=== PATIENT | female | born 1990 | race Caucasian/White ===

== ENCOUNTER → 2020-01-20 | Outpatient (CLI) | payer OTHER | LOC: LAB 09:53 | PROVIDERS: ATTEND Obstetrics & Gynecology | DX: Z34.93 Encounter for supervision of normal pregnancy, unspecified, third trimester (principal); Z3A.00 Weeks of gestation of pregnancy not specified | CPT/HCPCS: 36415; 82950 ==

== ENCOUNTER → 2020-03-22 | Outpatient (CLI) | payer OTHER ==
[~2020-03-22] MED LIST: DOCU-109 PO; IBUP-1060 PO
== END ==
LOC: SPEC 10:14
PROVIDERS: ATTEND Obstetrics & Gynecology
DX: Z34.93 Encounter for supervision of normal pregnancy, unspecified, third trimester (principal); Z3A.00 Weeks of gestation of pregnancy not specified
CPT/HCPCS: 36415; 87653

== ENCOUNTER 2020-04-07 01:17 | Inpatient (IN) | payer OTHER ==
[~2020-04-07] VITALS: Ht 172.7 cm; Wt 94.3 kg
[2020-04-07] MEDS ORDERED: ACETAMINOPHEN 500 MG TABLET PO PRN (01:30)
[2020-04-07 01:41] LABS: BILIRUBIN,URINE NEGATIVE (NEG); CLARITY,URINE CLOUDY; COLOR,URINE YELLOW; NITRITE,URINE NEGATIVE (NEG); PH,URINE 6.5 (<5.0-8.0); PROTEIN,URINE NEGATIVE (NEG-TRACE); UROBILINOGEN,URINE 0.2 mg/dL (0.2 mg/dL)
[2020-04-07 01:46] LABS: SQUAMOUS EPITHELIAL CELL,UR FEW /LPF
[2020-04-07 01:47] LABS: BACTERIA,URINE 0 /HPF (0-FEW); WBC,URINE 0 /HPF (0-4)
[2020-04-07] MEDS: IV RINGERS,LACTATED 1000ML 1,000 ML IV SCH ×6 (05:19→21:19)
[2020-04-07 05:24] VITALS: BP 118/65
[2020-04-07] MEDS ORDERED: IBUPROFEN 400 MG TABLET. PO PRN (05:30)
[2020-04-07] MEDS ORDERED: OXYTOCIN 30 UNIT/500 ML PREMIX 500 ML IV PRN ×3 (05:30→08:15)
[2020-04-07] MEDS ORDERED: LIDOCAINE 1% PF 30 ML VIAL. INJ PRN (05:30)
[2020-04-07] MEDS ORDERED: BUTORPHANOL 2 MG/ML VIAL. IVP PRN (05:30)
[2020-04-07] MEDS ORDERED: fentaNYL PF VIAL 100 MCG/2 ML VIAL IVP PRN (05:30)
[2020-04-07] MEDS ORDERED: ONDANSETRON PF 4 MG/2 ML VIAL. IVP PRN (05:30)
[2020-04-07] MEDS ORDERED: TERBUTALINE 1 MG/ML VIAL. SQ PRN (05:30)
[2020-04-07] MEDS ORDERED: 0.9 % SODIUM CHLORIDE 10 ML DISP.SYRIN. IV PRN ×2 (05:30→08:15)
[2020-04-07 05:40] LABS: BASO % 0 % (0-3); EOS % 0 % (0-3); HEMATOCRIT 37.8 % (36.0-47.0); HEMOGLOBIN 12.3 g/dL (12.0-15.5); LYMPH # 1.2 x10^3/uL (1.0-4.8); LYMPH % 7 % (24-48); MEAN CORPUSCULAR HEMOGLOBIN 28 pg (25-35); MEAN CORPUSCULAR HGB CONC 33 g/dL (31-37); MEAN CORPUSCULAR VOLUME 85 fL (79-100); MONO # 0.7 x10^3/uL (0.0-1.1); MONO % 4 % (0-9); NEUT # 15.5 x10^3/uL (1.8-7.7); NEUT % 89 % (31-73); PLATELET COUNT 188 x10^3/uL (140-400); RED BLOOD COUNT 4.46 x10^6/uL (3.50-5.40); RED CELL DISTRIBUTION WIDTH 13.7 % (11.5-14.5); WHITE BLOOD COUNT 17.5 x10^3/uL (4.0-11.0)
[2020-04-07 06:21] LABS: % BANDS 10 % (0-9); % BASOS 1 % (0-3); % LYMPHS 11 % (24-48); % MONOS 5 % (0-10); % SEGS 73 % (35-66); PLT ESTIMATE ADEQUATE (ADEQUATE)
[2020-04-07] MEDS ORDERED: OXYTOCIN PREMIX 30 UNIT/500 ML NS BAG. IV ONE (07:00)
--- NOTE | 2020-04-07 08:12 | PDOC1 ---
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 On presentation she was found to be 1 cm dilated. After a couple hours she was found to have made cervical change so she was subsequently admitted. The pt began her care with Dr. Santos at [facility] in [facility]. She transferred around 23wk when she began working with [employer] ([employer]). PMH: Denies PSH: T&A Meds: PNV All: NKDA OBHx: G1 SH: no tob, no EtOH FH: noncontributory Medications: Meds: Current Medications Medications (Trade) Dose Ordered Sig/James Route PRN Reason Start Time Stop Time Status Last Admin Dose Admin Ringer's Solution 1,000 ml @ 125 mls/hr Q8H IV 04/07/20 01:18 04/07/20 05:28 Allergies: Coded Allergies: No Known Drug Allergies (Unverified , 04/07/20) Physical Exam: Vital Signs: Vital Signs Date Time Temp Pulse Resp B/P (MAP) Pulse Ox O2 Delivery O2 Flow Rate FiO2 04/07/20 05:24 98.0 88 20 118/65 (82) Room Air 98.0 PE: GENERAL: No apparent distress. Alert and oriented. HEENT: Head normocephalic, atraumatic. NECK: Supple LUNGS: Clear to auscultation. HEART: RRR, S1, S2 present, pulses intact ABDOMEN: Soft, positive bowel sounds. EXTREMITIES: No cyanosis or edema. NEUROLOGIC: Normal speech, normal tone PSYCHIATRIC: Normal affect, normal mood. SKIN: No ulceration. FHT: 120s +acels/no decels/mLTV [place]: 1-3 min SVE: 8/C/0 Labs: Laboratory Tests Test 04/07/20 01:30 04/07/20 05:22 Urine Collection Type Unknown Urine Color Yellow Urine Clarity Cloudy Urine pH 6.5 (<5.0-8.0) Urine Specific [place] 1.010 (1.000-1.030) Urine Protein Negative mg/dL (NEG-TRACE) Urine Glucose (UA) Negative mg/dL (NEG) Urine Ketones (Stick) Negative mg/dL (NEG) Urine Blood Trace (NEG) Urine Nitrite Negative (NEG) Urine Bilirubin Negative (NEG) Urine Urobilinogen Dipstick 0.2 mg/dL (0.2 mg/dL) Urine Leukocyte Esterase Negative (NEG) Urine RBC 1-2 /HPF (0-2) Urine WBC 0 /HPF (0-4) Urine Squamous Epithelial Cells Few /LPF Urine Bacteria 0 /HPF (0-FEW) White Blood Count 17.5 x10^3/uL (4.0-11.0) H Red Blood Count 4.46 x10^6/uL (3.50-5.40) Hemoglobin 12.3 g/dL (12.0-15.5) Hematocrit 37.8 % (36.0-47.0) Mean Corpuscular Volume 85 fL (79-100) Mean Corpuscular Hemoglobin 28 pg (25-35) Mean Corpuscular Hemoglobin Concent 33 g/dL (31-37) Red Cell Distribution Width 13.7 % (11.5-14.5) Platelet Count 188 x10^3/uL (140-400) Neutrophils (%) (Auto) 89 % (31-73) H Lymphocytes (%) (Auto) 7 % (24-48) L Monocytes (%) (Auto) 4 % (0-9) Eosinophils (%) (Auto) 0 % (0-3) Basophils (%) (Auto) 0 % (0-3) Neutrophils # (Auto) 15.5 x10^3/uL (1.8-7.7) H Lymphocytes # (Auto) 1.2 x10^3/uL (1.0-4.8) Monocytes # (Auto) 0.7 x10^3/uL (0.0-1.1) Eosinophils # (Auto) 0.0 x10^3/uL (0.0-0.7) Basophils # (Auto) 0.0 x10^3/uL (0.0-0.2) Segmented Neutrophils % 73 % (35-66) H Band Neutrophils % 10 % (0-9) H Lymphocytes % 11 % (24-48) L Monocytes % 5 % (0-10) Basophils % 1 % (0-3) Platelet Estimate Adequate (ADEQUATE) Laboratory Tests 04/07/20 05:22 Laboratory Tests 04/07/20 05:22 Assessment & Plan: A/P 30y @ 39.4 by L=21 1.) Active labor expectant management 2.) Flu vaccine given Jul 2019 3.) TDAP given 02/02/20 4.) Fetus cat I FHT 5.) Boy: Froilan 6.) plan 7.) GBS neg TERRY ORTEZ MD Apr 07, 2020 08:12
[2020-04-07] MEDS ORDERED: ACETAMINOPHEN 325 MG TABLET. PO PRN (08:15)
[2020-04-07] MEDS ORDERED: ZOLPIDEM 5 MG TABLET. PO PRN (08:15)
[2020-04-07] MEDS ORDERED: HYDROCORTISONE 1% TOPICAL OINTMENT 30GM TUBE. TP PRN (08:15)
[2020-04-07] MEDS ORDERED: diphenhydrAMINE HCL 25 MG CAPSULE PO PRN (08:15)
[2020-04-07] MEDS ORDERED: SIMETHICONE 80 MG TAB.CHEW PO PRN (08:15)
[2020-04-07] MEDS ORDERED: DOCUSATE SODIUM 100 MG CAPSULE. PO PRN (08:15)
[2020-04-07] MEDS ORDERED: oxyCODONE/APAP 5/325 1 TAB TABLET PO PRN (08:15)
[2020-04-07] MEDS ORDERED: PHENYLEPH/MINERAL OIL/PETROLAT RECTAL OINTMENT TUBE. RC PRN (08:15)
[2020-04-07] MEDS ORDERED: MMR per PROTOCOL. MC PRN (08:15)
[2020-04-07] MEDS ORDERED: TDaP (Adacel) per PROTOCOL. MC PRN (08:15)
[2020-04-07] MEDS ORDERED: BENZOCAINE 20% TOPICAL AEROSOL SPRAY 57GM CAN. TP PRN (08:15)
[2020-04-07] MEDS ORDERED: MAG HYDROX/ALUMINUM HYD/SIMETH 30 ML ORAL.SUSP PO PRN (08:15)
[2020-04-07] MEDS ORDERED: MAGNESIUM HYDROXIDE 2,400 MG/30 ML ORAL.SUSP. PO PRN (08:15)
--- NOTE | 2020-04-07 08:19 | PDOC ---
VAGINAL DELIVERY DATE DATE: 04/07/20 TIME: 08:18 TIME Patient delivered a viable male over intact perineum at 0737. Wt 7lb 13.8oz. Apgars 8/9. Placenta delivered spontaneously, intact with 3VC. 2nd degree laceration right of midline noted. Repaired in usual fashion with 30 vicryl. Good hemostasis noted. No post delivery Pitocin given. EBL 350cc. WEIGHT Weight [ ] TERRY ORTEZ MD Apr 07, 2020 08:19
[2020-04-07] MEDS: IBUPROFEN 400 MG TABLET. PO PRN ×2 (08:31→21:14)
[2020-04-07] MEDS: PRENATAL MULTIVITAMIN TABLET. PO SCH (09:00)
[2020-04-07 10:20] VITALS: BP 104/72
[2020-04-07 11:20] VITALS: BP 109/75
[2020-04-07 17:38] VITALS: BP 118/81
[2020-04-07 21:20] VITALS: BP 104/69
[2020-04-08 03:00] VITALS: BP 106/67
[2020-04-08 04:48] LABS: HEMATOCRIT 28.5 % (36.0-47.0); HEMOGLOBIN 9.4 g/dL (12.0-15.5)
[2020-04-08] MEDS ORDERED: FERROUS SULFATE 325 MG TABLET. PO SCH (08:00)
[2020-04-08] MEDS: PRENATAL MULTIVITAMIN TABLET. PO SCH (09:11)
[2020-04-08] MEDS: IBUPROFEN 400 MG TABLET. PO PRN (09:11)
--- NOTE | 2020-04-08 09:36 | PDOC ---
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 Dana PO. Voiding. Minimal lochia Objective: Vital Signs: Vital Signs Date Time Temp Pulse Resp B/P (MAP) Pulse Ox O2 Delivery O2 Flow Rate FiO2 04/07/20 10:20 98.3 111 18 104/72 (83) 96 Room Air 98.3 Vital Signs Date Time Temp Pulse Resp B/P (MAP) Pulse Ox O2 Delivery O2 Flow Rate FiO2 04/08/20 03:00 97.7 85 14 106/67 (80) 98 97.7 04/07/20 21:20 Room Air Labs: Laboratory Tests Test 04/08/20 04:40 Hemoglobin 9.4 g/dL (12.0-15.5) L Hematocrit 28.5 % (36.0-47.0) L Mean Corpuscular Hemoglobin Concent 33 g/dL (31-37) Laboratory Tests 04/08/20 04:40 Laboratory Tests 04/08/20 04:40 Physical Exam: GENERAL: No apparent distress. Alert and oriented. HEENT: Head normocephalic, atraumatic. NECK: Supple LUNGS: Clear to auscultation. HEART: RRR, S1, S2 present, pulses intact ABDOMEN: Soft, positive bowel sounds. EXTREMITIES: No cyanosis or edema. NEUROLOGIC: Normal speech, normal tone PSYCHIATRIC: Normal affect, normal mood. SKIN: No ulceration. FFNT below umb No C/C/E Assessment & Plan: A/P 30y PPD #1 s/p 1.) PP doing well 2.) Flu vaccine given Jul 2019 3.) TDAP given 02/02/20 4.) Hgb 12.3 -> 9.4 5.) Contraception barrier methods 6.) Cont PP care TERRY ORTEZ MD Apr 08, 2020 09:36
[2020-04-08] MEDS ORDERED: IBUP-1060 PO (09:37)
[2020-04-08] MEDS ORDERED: DOCU-109 PO (09:37)
[2020-04-08 10:15] VITALS: BP 111/73
--- NOTE | 2020-04-08 13:40 | NUR ---
Discharge and follow up instructions reviewed with and given to pt. Pt verbalized understanding and denied any questions or complaints at time of discharge. Pt ambulated out of the hospital with her , and staff.
--- NOTE | 2020-04-09 10:06 | DS ---
DATE OF DISCHARGE: 04/08/2020 ADMISSION DIAGNOSES: 1. Intrauterine at 39 weeks and 4 days by last menstrual period equal to a 21-week ultrasound. 2. Active labor. 3. GBS negative. DISCHARGE DIAGNOSES: 1. Intrauterine at 39 weeks and 4 days by last menstrual period equal to a 21-week ultrasound. 2. Active labor. 3. GBS negative. PROCEDURE: Spontaneous vaginal delivery. BRIEF HOSPITAL COURSE: The patient is a 30-year-old 1, para 0, who presented to Labor and Delivery at 39 weeks and 4 days by a LMP equal to a 21-week ultrasound with contractions. The patient was found to be 1 cm dilated on presentation. After a couple of hours, the patient had made cervical change and was subsequently admitted. Approximately around 7 o'clock, the patient was found to be complete and pushing was initiated. The patient delivered by vaginal delivery, see delivery note for full detail. By day #1, the patient was meeting all discharge criteria and subsequently was discharged home. Of note, the patient's blood count at the time of admission was 12.3 and after delivery was 9.4. DISCHARGE INSTRUCTIONS: The patient was told not to lift anything greater than 20 pounds, have pelvic rest for 6 weeks. The patient was to call if she had fevers, chills, nausea, vomiting, abdominal pain or any additional questions or concerns. FOLLOWUP APPOINTMENT: The patient is to follow up in the office on 05/19/2019 at 9:30 a.m. for a appointment. DISCHARGE MEDICATIONS: The patient was given a prescription for Motrin 800 mg 30 pills and Colace 100 mg 30 pills. TERRY ORTEZ MD DR: CAITLYN/avani JOB#: [id number] / [id number]
== END 2020-04-08 13:40 | disposition home or self-care (01) | DRG 807 ==
LOC: 3 SO LND 01:17 → OBSVTOIN 01:17 → 3 NORTH 10:20
PROVIDERS: ADMIT Obstetrics & Gynecology; ATTEND Obstetrics & Gynecology
PROC: 10E0XZZ Delivery of Products of Conception, External Approach (ICD-10-PCS; principal; 2020-04-07)
PROC: 0KQM0ZZ Repair Perineum Muscle, Open Approach (ICD-10-PCS; 2020-04-07)
DX: O70.1 Second degree perineal laceration during delivery (principal); Z37.0 Single live birth; Z3A.39 39 weeks gestation of pregnancy; Z20.828 Contact with and (suspected) exposure to other viral communicable diseases
CPT/HCPCS: 36415; 81001; 85007; 85014; 85018; 85025; 86592; 86850; 86900; 86901; J2590; J7120; G0378; U0003-CS

== ENCOUNTER → 2021-05-24 | Outpatient (CLI) | payer OTHER ==
[2021-05-24 10:57] LABS: BASO # 0.1 x10^3/uL (0.0-0.2); BASO % 1 % (0-3); EOS # 0.1 x10^3/uL (0.0-0.7); EOS % 2 % (0-3); HEMATOCRIT 38.3 % (36.0-47.0); HEMOGLOBIN 12.8 g/dL (12.0-15.5); LYMPH % 29 % (24-48); MEAN CORPUSCULAR HEMOGLOBIN 28 pg (25-35); MEAN CORPUSCULAR HGB CONC 33 g/dL (31-37); MEAN CORPUSCULAR VOLUME 85 fL (79-100); MONO # 0.4 x10^3/uL (0.0-1.1); MONO % 7 % (0-9); NEUT # 4.2 x10^3/uL (1.8-7.7); NEUT % 62 % (31-73); PLATELET COUNT 212 x10^3/uL (140-400); RED BLOOD COUNT 4.52 x10^6/uL (3.50-5.40); WHITE BLOOD COUNT 6.8 x10^3/uL (4.0-11.0)
[2021-05-24 11:11] LABS: ALBUMIN 3.8 g/dL (3.4-5.0); ALBUMIN/GLOBULIN RATIO 1.1 (1.0-1.7); CREATININE 0.7 mg/dL (0.6-1.0); GFR 97.6; POTASSIUM 4.3 mmol/L (3.5-5.1); TOTAL PROTEIN 7.2 g/dL (6.4-8.2)
== END ==
LOC: LAB 10:25
PROVIDERS: ATTEND Family Medicine
DX: R10.11 Right upper quadrant pain (principal)
CPT/HCPCS: 36415; 80053; 82150; 83690; 85025

== ENCOUNTER → 2021-05-25 | Outpatient (CLI) | payer OTHER ==
--- NOTE | 2021-05-25 15:24 | KCIC ---
EXAM: ULTRASOUND ABDOMEN LIMITED CLINICAL HISTORY: Reason: RIGHT UPPER QUADRANT PAIN COMPARISON: None available. TECHNIQUE: Limited ultrasound examination of the right upper quadrant of the abdomen was performed. FINDINGS: The liver measures 15.9 cm. The gallbladder wall thickness measures 1.1 mm. No evidence of gallstones . The common bile duct measures 2.2 mm in transverse dimension. The visualized aorta, IVC within norm al limits of dimension. The right kidney measures 10.5 x 4.5 x 4.0 cm. IMPRESSION: Unremarkable exam. Electronically signed by: Kartik Vieira MD (05/25/2021 3:21 PM) [id number]
== END ==
LOC: KCIC US 09:32
PROVIDERS: ATTEND Family Medicine
DX: R10.11 Right upper quadrant pain (principal)
CPT/HCPCS: 76705

== ENCOUNTER → 2021-06-14 | Outpatient (CLI) | payer OTHER ==
--- NOTE | 2021-06-14 10:56 | RAD ---
HEPATOBILIARY SCAN WITH EJECTION FRACTION History: Reason: RIGHT UPPER QUAD PAIN / Spl. Instructions: / History: Comparison: Limited Abdominal ultrasound May 25, 2021. Procedure: Serial static images are obtained of the liver and biliary system in the frontal projectio n following IV administration of 5 mCi of Technetium 99m Choletec. After filling of the gallbladder , patient drank 8oz of Ensure for fatty meal protocol and returned to supine position. Dynamic imagin g continued x60 minutes. The gallbladder ejection fraction was calculated. Findings: There is prompt hepatic clearance of tracer from the blood pool. There is homogeneous distribution th roughout the liver. There is normal filling of the gallbladder and normal emptying into the biliary s ystem. There is preferential filling of the gallbladder prior to the ejection fraction portion of the exam, a normal variant. The gallbladder ejection fraction measures 98% (normal gallbladder EF is 35% or greater). IMPRESSION: 1. The cystic duct and common bile duct are patent. Negative for acute cholecystitis. 2. The gallbladder ejection fraction is normal. Electronically signed by: Francisco Buenrostro MD (06/14/2021 10:54 AM) [id number]
== END ==
LOC: NM 08:41
PROVIDERS: ATTEND Family Medicine
DX: K76.89 Other specified diseases of liver (principal)
CPT/HCPCS: 78227; A9537

== ENCOUNTER → 2021-08-22 | Outpatient (CLI) | payer OTHER | LOC: LAB 13:17 | PROVIDERS: ATTEND Internal Medicine Gastroenterology | DX: Z01.812 Encounter for preprocedural laboratory examination (principal); Z20.822 Contact with and (suspected) exposure to COVID-19 | CPT/HCPCS: U0003; U0005 ==

== ENCOUNTER → 2021-10-03 | Outpatient (CLI) | payer OTHER | LOC: LAB 09:43 | PROVIDERS: ATTEND Internal Medicine Pulmonary Disease | DX: M79.10 Myalgia, unspecified site (principal); R53.81 Other malaise; J02.9 Acute pharyngitis, unspecified; R09.81 Nasal congestion; Z20.822 Contact with and (suspected) exposure to COVID-19 | CPT/HCPCS: U0003; U0005 ==

== ENCOUNTER → 2021-11-07 | Outpatient (CLI) | payer OTHER | LOC: SPEC 10:24 | PROVIDERS: ATTEND Obstetrics & Gynecology | DX: Z01.411 Encounter for gynecological examination (general) (routine) with abnormal findings (principal) | CPT/HCPCS: 88175 ==